=== PATIENT | female | born 1970 | race Caucasian/White ===

== ENCOUNTER → 2016-08-04 | Outpatient (CLI) | payer OTHER ==
--- NOTE | 2016-08-04 14:42 | US ---
Right Breast Ultrasound Indication: Follow up probably benign cyst in upper outer right breast. Technique: The outer right breast was scanned with a high-resolution linear transducer by the sonogra pher and sc. Correlation made with mammograms and targeted physical exam. Comparison: Right breast ultrasound dated February 15, 2016 and screening and diagnostic mammograms datin g back to December 2011. Findings: The benign 0.8 x 0.3 x 0.6 cm cyst in the upper outer right breast 10 o'clock position 5 cm from the nipple is unchanged in morphology since January 2016. The tiny septation along the medial lina in of the cyst is unchanged. No nodule or mass has developed. A second tiny 3 x 4 mm cyst in the same region is new. Impression: Benign cyst in upper outer right breast. No lesion suspicious for malignancy. BI-RADS 2: Benign Finding. Recommendation: Resume routine screening in December 2016, unless otherwise clinically indicated. The negative results and recommendations were discussed with the patient at time of study completion.
--- NOTE | 2016-08-04 19:19 | MA ---
Right diagnostic mammogram dated August 04, 2016 Indication: Follow up probably benign asymmetry outer right breast. Technique: Standard CC and MLO views of the right breast. Mammograms are processed with iCAD analysis . Comparison: Screening and diagnostic mammograms dating back to September 2010 and right breast ultrasound dated January 2016. Findings: No malignant type calcification, dominant mass, or distortion has developed. The partially obscured asymmetry in the outer right breast on the CC view is less conspicuous than on the December 2015 exam. Impression: Benign asymmetry outer right breast is less conspicuous. No suspicious finding. BI-RADS 0: Needs additional imaging evaluation. Recommendation: Proceed with right breast ultrasound today as previously recommended.
== END ==
LOC: BMCIMAGING 13:19
DX: Z12.39 Encounter for other screening for malignant neoplasm of breast (principal); N60.01 Solitary cyst of right breast
CPT/HCPCS: G0206

== ENCOUNTER → 2017-01-08 | Outpatient (CLI) | payer OTHER | LOC: BMCIMAGING 08:28 | PROVIDERS: ATTEND Internal Medicine | DX: Z12.31 Encounter for screening mammogram for malignant neoplasm of breast (principal) | CPT/HCPCS: G0202 ==

== ENCOUNTER → 2018-01-09 | Outpatient (CLI) | payer OTHER | LOC: BMCIMAGING 07:31 | PROVIDERS: ATTEND Internal Medicine | DX: Z12.31 Encounter for screening mammogram for malignant neoplasm of breast (principal) ==

== ENCOUNTER → 2019-01-10 | Outpatient (CLI) | payer OTHER | LOC: BMCIMAGING 13:36 ==